=== PATIENT | male | born 1945 | race Caucasian/White ===

== ENCOUNTER 2017-06-26 12:19 | Outpatient (CLI) | payer OTHER ==
[~2017-06-26 12:19] MED LIST: ASPIR-LOW81 MG; SYMBICORT 16010.2 GM
== END 2017-06-26 12:56 | disposition home or self-care (01) ==
LOC: RAD 501 12:19
DX: H25.12 Age-related nuclear cataract, left eye (principal); Z01.810 Encounter for preprocedural cardiovascular examination

== ENCOUNTER 2020-06-02 11:06 | Outpatient (CLI) | payer OTHER | END 2020-06-02 11:07 | disposition home or self-care (01) | LOC: PPH VACUNA 11:06 | PROVIDERS: ATTEND Emergency Medicine Pediatric Emergency Medicine | DX: Z23 Encounter for immunization (principal) ==

== ENCOUNTER → 2020-06-23 08:00 | Outpatient (CLI) | payer OTHER | END | disposition home or self-care (01) | LOC: PPH VACUNA 08:00 | PROVIDERS: ATTEND Emergency Medicine Pediatric Emergency Medicine | DX: Z23 Encounter for immunization (principal) ==